=== PATIENT | male | born 2000 | race Hispanic/Latino ===

== ENCOUNTER 2020-11-12 23:37 | Emergency (ER) | payer SELFPAY ==
[~2020-11-12] VITALS: Ht 182.9 cm; Wt 108.9 kg
[2020-11-12] MEDS ORDERED: KEFLEX500 MG PO (23:54)
[2020-11-12] MEDS ORDERED: HIBICLENS120 ML TOP (23:55)
== END 2020-11-12 23:58 | disposition home or self-care (01) ==
LOC: ER 23:52
DX: L03.312 Cellulitis of back [any part except buttock and flank] (principal); Z86.2 Personal history of diseases of the blood and blood-forming organs and certain disorders involving the immune mechanism
CPT/HCPCS: 99282

== ENCOUNTER 2023-04-19 05:49 | Emergency (ER) | payer OTHER ==
[~2023-04-19] VITALS: Ht 182.9 cm; Wt 108.9 kg
[~2023-04-19 05:49] MED LIST: HIBICLENS120 ML TOP; KEFLEX500 MG PO
[2023-04-19 05:57] VITALS: O2SAT 100
[2023-04-19] MEDS ORDERED: RABIES VAC,PF CHICK-EMB CELL 2.5/KIT IM ONE (06:30)
[2023-04-19] MEDS ORDERED: AMOX TR-K CLV1 EAC2 PO (07:26)
== END 2023-04-19 07:42 | disposition home or self-care (01) ==
LOC: ER 05:55
DX: S90.572A Other superficial bite of ankle, left ankle, initial encounter (principal); W54.0XXA Bitten by dog, initial encounter; Y93.01 Activity, walking, marching and hiking; Y92.89 Other specified places as the place of occurrence of the external cause; Z86.2 Personal history of diseases of the blood and blood-forming organs and certain disorders involving the immune mechanism
CPT/HCPCS: 99283